=== PATIENT | male | born 1980 | race African-American/Black ===

== ENCOUNTER 2020-09-01 05:33 | Emergency (ER) | payer OTHER ==
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
== END 2020-09-01 08:17 ==
LOC: NAV ERS 05:33
DX: S02.2XXA Fracture of nasal bones, initial encounter for closed fracture (principal); S00.03XA Contusion of scalp, initial encounter; I10 Essential (primary) hypertension; E78.00 Pure hypercholesterolemia, unspecified; Y04.0XXA Assault by unarmed brawl or fight, initial encounter
CPT/HCPCS: 70450; 70486